=== PATIENT | female | born 1970 | race Caucasian/White ===

== ENCOUNTER 2016-12-07 23:02 | Emergency (ER) | payer SELFPAY ==
[2016-12-07 23:37] VITALS: BP 127/75
[2016-12-08] LABS: Basophils % (Auto) 0.7 % (0.0-1.8); Eosinophils % (Auto) 1.3 % (0.0-4.3); Hematocrit 38.3 % (30.3-42.9); Hemoglobin 12.6 gm/dl (10.1-14.3); Mean Corpuscular HGB Conc 33 % (30-34); Mean Corpuscular Hemoglobin 30 pg (28-32); Mean Corpuscular Volume 90 fl (79-97); Platelet Count 309 K/mm3 (140-440); Red Blood Count 4.23 M/mm3 (3.65-5.03); Red Cell Distribution Width 12.6 % (13.2-15.2); White Blood Count 9.3 K/mm3 (4.5-11.0)
[2016-12-08 00:23] LABS: Alanine Aminotransferase 11 units/L (7-56); Albumin/Globulin Ratio 1.5 %; Alkaline Phosphatase 35 units/L (35-129); BUN/Creatinine Ratio 24.28; Bilirubin,Total < 0.2 mg/dL (0.1-1.2); Blood Urea Nitrogen 17 mg/dL (7-17); Calcium 8.9 mg/dL (8.4-10.2); Carbon Dioxide 24 mmol/L (22-30); Chloride 103.3 mmol/L (98-107); Glucose 77 mg/dL (65-100); Lipase 70 units/L (13-60); Sodium 138 mmol/L (137-145); Total Protein 6.7 g/dL (6.3-8.2)
[2016-12-08 00:39] LABS: Anion Gap 15 mmol/L
[2016-12-08 03:26] LABS: Bilirubin,Urine NEG (Negative); Blood,Urine NEG (Negative); Ketones,Urine NEG (Negative); Leukocyte Esterase,Urine LG (Negative); Nitrite,Urine NEG (Negative); Protein,Urine <15 mg/dL mg/dL (Negative); Urobilinogen,Urine < 2.0 mg/dL (<2.0)
--- NOTE | 2016-12-11 01:35 | ED Elopement Review ---
ED Pt Elopement review - Results review Lab results: Laboratory Tests 12/07/16 12/07/16 12/07/16 23:46 23:46 23:46 WBC 9.3 RBC 4.23 Hgb 12.6 Hct 38.3 MCV 90 MCH 30 MCHC 33 RDW 12.6 L Plt Count 309 Lymph % (Auto) 23.3 [place] % (Auto) 5.2 Eos % (Auto) 1.3 Baso % (Auto) 0.7 Lymph # 2.2 [place] # 0.5 Eos # 0.1 Baso # 0.1 Seg Neutrophils % 69.5 Seg Neutrophils # 6.5 Sodium 138 Potassium 4.0 Chloride 103.3 Carbon Dioxide 24 Anion Gap 15 BUN 17 Creatinine 0.7 Estimated GFR > 60 BUN/Creatinine Ratio 24.28 Glucose 77 Calcium 8.9 Total Bilirubin < 0.2 AST 14 ALT 11 Alkaline Phosphatase 35 Total Protein 6.7 Albumin 4.0 Albumin/Globulin Ratio 1.5 Lipase 70 H HCG, Qual Negative Urine Color Urine Turbidity Urine pH Ur Specific [place] Urine Protein Urine Glucose (UA) Urine Ketones Urine Blood Urine Nitrite Urine Bilirubin Urine Urobilinogen Ur Leukocyte Esterase Urine WBC (Auto) Urine RBC (Auto) U Epithel Cells (Auto) 12/08/16 Unknown WBC RBC Hgb Hct MCV MCH MCHC RDW Plt Count Lymph % (Auto) [place] % (Auto) Eos % (Auto) Baso % (Auto) Lymph # [place] # Eos # Baso # Seg Neutrophils % Seg Neutrophils # Sodium Potassium Chloride Carbon Dioxide Anion Gap BUN Creatinine Estimated GFR BUN/Creatinine Ratio Glucose Calcium Total Bilirubin AST ALT Alkaline Phosphatase Total Protein Albumin Albumin/Globulin Ratio Lipase HCG, Qual Urine Color Yellow Urine Turbidity Clear Urine pH 7.0 Ur Specific [place] 1.023 Urine Protein <15 mg/dl Urine Glucose (UA) Neg Urine Ketones Neg Urine Blood Neg Urine Nitrite Neg Urine Bilirubin Neg Urine Urobilinogen < 2.0 Ur Leukocyte Esterase Lg Urine WBC (Auto) 3.0 Urine RBC (Auto) 9.0 U Epithel Cells (Auto) 2.0 - Call Back decision Pt Call Back Decision: Pt to F/U with PMD
== END 2016-12-08 03:08 | disposition left against medical advice (07) ==
LOC: ED 23:02
DX: R10.2 Pelvic and perineal pain (principal); R11.0 Nausea; N89.8 Other specified noninflammatory disorders of vagina; Z53.21 Procedure and treatment not carried out due to patient leaving prior to being seen by health care provider
CPT/HCPCS: 36415; 80053; 81001; 83690; 84703; 85025